=== PATIENT | female | born 1965 | race Two or more races ===

== ENCOUNTER 2023-01-10 13:54 | Emergency (ER) | payer OTHER ==
[~2023-01-10] VITALS: Ht 152.4 cm; Wt 56.7 kg
[2023-01-10] MEDS ORDERED: TAMS0.4C PO (18:22)
[2023-01-10] MEDS ORDERED: CIPRO500 MG PO (18:22)
[2023-01-10] MEDS ORDERED: KETO10TA2 PO (18:22)
== END 2023-01-10 18:37 | disposition home or self-care (01) ==
LOC: ER 13:54
DX: R10.32 Left lower quadrant pain (principal); N20.9 Urinary calculus, unspecified; D25.9 Leiomyoma of uterus, unspecified

== ENCOUNTER 2023-02-09 10:52 | Emergency (ER) | payer OTHER ==
[~2023-02-09] VITALS: Ht 152.4 cm; Wt 54.9 kg
[~2023-02-09 10:52] MED LIST: CIPRO500 MG PO; KETO10TA2 PO; TAMS0.4C PO
[2023-02-09] MEDS ORDERED: KETO10TA2 PO (15:34)
== END 2023-02-09 15:46 | disposition home or self-care (01) ==
LOC: ER 10:52
DX: M25.572 Pain in left ankle and joints of left foot (principal)